=== PATIENT | male | born 1980 | race Caucasian/White ===

== ENCOUNTER 2017-05-19 14:21 | Inpatient (IN) | payer OTHER ==
[2017-05-19 14:38] VITALS: BMI 27.3
--- NOTE | 2017-05-19 17:22 | HP ---
CIWA Score - CIWA Score Nausea/Vomitin-No Nausea/No Vomiting Muscle Tremors: 4-Moderate,w/Arms Extend Anxiety: 4-Mod. Anxious/Guarded Agitation: 0-Normal Activity Paroxysmal Sweats: 4-Forehead w/Sweat Beads Orientation: 1-Uncertain about Date Tacttile Disturbances: 2-Mild Itch/Numbness/Burn Auditory Disturbances: 1-Very Mild Visual Disturbances: 0-None Headache: 0-None Present CIWA-Ar Total Score: 16 Admission ROS S - HPI Chief Complaint: "I want to go to detox and rehab, I want my life back in order, I have bad diarrhea and shakes" Allergies/Adverse Reactions: Allergies Allergy/AdvReac Type Severity Reaction Status Date / Time No Known Allergies Allergy Verified 05/19/17 16:57 History of Present Illness: 37 yo hx heroin, cocaine, and alcohol dependence is here seeking detox. PMHX: sciatica bilateral, L5 pinch nerve, depression, and hyperlipidemia. Reports OD 2 months was admitted to [facility]. Denies hx of seizure. Denies suicidal / homicidal ideation or suicide attempts. Last detox [facility] 2014. Reports no significant period of sobriety. Exam Limitations: No Limitations - Ebola screening Have you traveled outside of the country in the last 21 days: No Have you had contact with anyone from an Ebola affected area: No Have you been sick,other than usual withdrawal symptoms: No Do you have a fever: No - Review of Systems Constitutional: Chills, Loss of Appetite, Changes in sleep, Unintentional Wgt. Loss (loss about 40 lbs in the past two months) EENT: reports: No Symptoms Reported Respiratory: reports: No Symptoms reported Cardiac: reports: Syncope (related to drinking, last time three weeks ago) GI: reports: Diarrhea, Nausea, Poor Appetite, Poor Fluid Intake, Abdominal cramping : reports: No Symptoms Reported Musculoskeletal: reports: Back Pain (bilateral sciatica), Joint Pain Integumentary: reports: No Symptoms Reported Neuro: reports: Numbness (hands and feet), Tingling (hands and feet), Tremors Endocrine: reports: Excessive Sweating, Change in Weight Hematology: reports: No Symptoms Reported Psychiatric: reports: Orientated x3, Anxious, Depressed Other Systems: Reviewed and Negative Patient History - Patient Medical History Hx Anemia: No Hx Asthma: No Hx Chronic Obstructive Pulmonary Disease (COPD): No Hx Cancer: No Hx Cardiac Disorders: No Hx Congestive Heart Failure: No Hx Hypertension: No Hx Hypercholesterolemia: No Hx Pacemaker: No HX Cerebrovascular Accident: No Hx Seizures: No Hx Dementia: No Hx Diabetes: No Hx Gastrointestinal Disorders: No Hx Liver Disease: No Hx Genitourinary Disorders: No Hx Sexually Transmitted Disorders: No Hx Renal Disease (ESRD): No Hx Thyroid Disease: No Hx Human Immunodeficiency Virus (HIV): No (Last tested March 2017) Hx Hepatitis C: No Hx Depression: Yes Hx Suicide Attempt: No Hx Bipolar Disorder: No Hx Schizophrenia: No - Patient Surgical History Past Surgical History: No Hx Neurologic Surgery: No Hx Cataract Extraction: No Hx Cardiac Surgery: No Hx Lung Surgery: No Hx Breast Surgery: No Hx Breast Biopsy: No Hx Abdominal Surgery: No Hx Appendectomy: No Hx Cholecystectomy: No Hx Genitourinary Surgery: No Hx Section: No Hx Orthopedic Surgery: No Anesthesia Reaction: No - PPD History Previous Implant?: Yes Date: 02/18/15 PPD to be Administered?: Yes - Reproductive History Patient is a Female of Child Bearing Age (11 -55 yrs old): No - Smoking Cessation Smoking history: Former smoker Have you smoked in the past 12 months: No Aproximately how many cigarettes per day: 0 (quit 1.5 years ago ) Cigars Per Day: 0 Hx Chewing Tobacco Use: No Initiated information on smoking cessation: No - Substance & Tx. History Hx Alcohol Use: Yes Hx Substance Use: Yes Substance Use Type: Alcohol, Cocaine, Heroin Hx Substance Use Treatment: Yes ([facility] 2014) - Substances Abused Alcohol Route: Oral Frequency: Daily Amount used: 4/6PACK Age of first use: 13 Date of Last Use: 05/19/17 Heroin Route: Inhalation Frequency: Daily Amount used: 6 BAGS Age of first use: 36 Date of Last Use: 05/16/17 Cocaine Route: Inhalation Frequency: Daily Amount used: 4-5 bags Age of first use: 36 Date of Last Use: 05/19/17 Family Disease History - Family Disease History Family Disease History: Other: Father (heroin OD, cocaine, Cirrhosis liver, HIV +), Mother (alive and well), Sister (alive breast cancer ) Admission Physical Exam BHS - Vital Signs Vital Signs: Vital Signs - 24 hr 02/28/18 14:35 Temperature 97 F L Pulse Rate 80 Respiratory 18 Rate Blood Pressure 137/82 - Physical General Appearance: Yes: Disheveled, Mild Distress, Sweating, Anxious, Other ( malodorous) HEENTM: Yes: EOMI, Hearing grossly Normal, Normal ENT Inspection, Pharynx Normal , Tm's normal, Other (poor dentation) Respiratory: Yes: Chest Non-Tender, Lungs Clear, Normal Breath Sounds, No Respiratory Distress, No Accessory Muscle Use Neck: Yes: No masses,lesions,Nodules, Trachea in good position Breast: Yes: Breast Exam Deferred Cardiology: Yes: Regular Rhythm, Regular Rate Abdominal: Yes: Normal Bowel Sounds, Non Tender, Flat, Soft Genitourinary: Yes: Within Normal Limits Back: Yes: Normal Inspection Musculoskeletal: Yes: Back pain (radiates to the right lower extremity and left buttocks), Other (abnormal gait) Extremities: Yes: Normal Capillary Refill, Normal Inspection, Normal Range of Motion, Non-Tender Neurological: Yes: pullman clerk II-XII NML intact, Fully Oriented, Alert, Motor Strength 5/5, Depressed Affect (tearful during the assessment, sister recent dx with breast CA and father passed from over dose) Integumentary: Yes: Normal Color, Dry, Warm, Other (poor skin turgor) Lymphatic: Yes: Within Normal Limits - Addiitonal Findings: HIV testing offered today , patient refuse - Diagnostic (1) Heroin dependence Current Visit: Yes Status: Acute (2) Lumbago with sciatica Current Visit: Yes Status: Chronic Qualifiers: Back pain laterality: bilateral Sciatica laterality: bilateral sciatica (3) Dehydration Current Visit: Yes Status: Acute (4) Weight loss Current Visit: Yes Status: Acute (5) Use of cane as ambulatory aid Current Visit: Yes Status: Chronic (6) Neuropathy Current Visit: Yes Status: Chronic (7) Poor dentition Current Visit: Yes Status: Chronic (8) Alcohol dependence with withdrawal, uncomplicated Current Visit: Yes Status: Acute (9) Cocaine dependence Current Visit: Yes Status: Chronic Qualifiers: Substance use status: uncomplicated Qualified Code(s): F14.20 - Cocaine dependence, uncomplicated (10) Difficulty sleeping Current Visit: Yes Status: Acute (11) Depressed mood Current Visit: Yes Status: Acute (12) Feeling grief Current Visit: Yes Status: Acute Cleared for Admission [facility] - Detox or Rehab [facility] Level of Care: Medically Managed Detox Regimen/Protocol: Librium [facility] Breath Alcohol Content Breath Alcohol Content: 0 Urine Drug Screen - Results Drug Screen Negative: No Urine Drug Screen Results: SALAZAR-Cocaine
[2017-05-19] MEDS ORDERED: hydrOXYzine PAMOATE 50 MG CAPSULE (FP) PO PRN (17:45)
[2017-05-19] MEDS ORDERED: MENTHOL/PHENOL 1 EACH UD MM PRN (17:45)
[2017-05-19] MEDS ORDERED: MAG HYDROX/AL HYDROX/SIMETH 30 ML UNIT-DOSE CUP PO PRN (17:45)
[2017-05-19] MEDS ORDERED: MAGNESIUM CITRATE 300 ML BOTTLE PO PRN (17:45)
[2017-05-19] MEDS ORDERED: MAGNESIUM HYDROX 2400MG/30ML ORAL SUSPENSION 30 ML CUP PO PRN (17:45)
[2017-05-19] MEDS ORDERED: P-EPHED 60MG/TRIPROLIDI 2.5MG TABLET PO PRN (17:45)
[2017-05-19] MEDS ORDERED: chlordiazePOXIDE HCL 25 MG CAPSULE PO PRN (17:45)
[2017-05-19] MEDS ORDERED: guaiFENesin/D-METHORPHAN HB 10 ML UNIT-DOSE CUPS PO PRN (17:45)
[2017-05-19] MEDS ORDERED: IBUPROFEN 400 MG TABLET (FP) PO PRN (17:45)
[2017-05-19] MEDS ORDERED: LOPERAMIDE HCL 2 MG CAPSULE PO PRN (17:45)
[2017-05-19] MEDS ORDERED: ACETAMINOPHEN 325 MG TABLET (FP) PO PRN (17:45)
[2017-05-19] MEDS ORDERED: chlordiazePOXIDE HCL 25 MG CAPSULE PO ONE (18:30)
[2017-05-19] MEDS: CYCLOBENZAPRINE HCL 5 MG TABLET PO SCH (22:44)
[2017-05-19] MEDS: THIAMINE HCL 100 MG TABLET (FP) PO SCH (22:44)
[2017-05-19] MEDS: chlordiazePOXIDE HCL 25 MG CAPSULE PO SCH (22:45)
[2017-05-19 22:47] LABS: URINE APPEARANCE CLEAR; URINE BILIRUBIN NEGATIVE (NEGATIVE); URINE BLOOD NEGATIVE (NEGATIVE); URINE COLOR YELLOW; URINE GLUCOSE (UA) 3+ (NEGATIVE); URINE KETONE 1+ (NEGATIVE); URINE LEUK ESTERASE NEGATIVE (NEGATIVE); URINE NITRITE NEGATIVE (NEGATIVE); URINE PROTEIN NEGATIVE (NEGATIVE)
[2017-05-20] MEDS: chlordiazePOXIDE HCL 25 MG CAPSULE PO SCH ×4 (07:54→22:23)
[2017-05-20] MEDS: CYCLOBENZAPRINE HCL 5 MG TABLET PO SCH ×3 (07:54→22:23)
[2017-05-20 10:20] LABS: HEMATOCRIT 42.6 % (35.4-49); HEMOGLOBIN 14.1 GM/dL (11.7-16.9); MCH 27.8 pg (25.7-33.7); MEAN CELL VOLUME 84.3 fl (80-96); MEAN PLT VOLUME 9.5 fl (7.5-11.1); PLATELET COUNT 239 K/MM3 (134-434); RBC 5.06 M/mm3 (4.00-5.60); RDW 15.4 % (11.9-15.9); WHITE BLOOD COUNT 5.9 K/mm3 (4.0-10.0)
[2017-05-20] MEDS: PRENATAL VITAMINS W/ FOLIC ACID TABLET (FP) PO SCH (10:45)
[2017-05-20 11:00] LABS: ALBUMIN 3.2 g/dl (3.4-5.0); ANION GAP 6 (8-16); BLOOD UREA NITROGEN 14 mg/dL (7-18); CALCIUM 8.2 mg/dL (8.5-10.1); CHLORIDE 109 mmol/L (98-107); CO2 28 mmol/L (21-32); CREATININE 0.7 mg/dL (0.7-1.3); GLUCOSE,RANDOM 86 mg/dL (74-106); POTASSIUM 4.5 mmol/L (3.5-5.1); SGOT/AST 8 U/L (15-37); SGPT/ALT 21 U/L (12-78); SODIUM 143 mmol/L (136-145)
[2017-05-20 11:02] LABS: ALK PHOS 68 U/L (45-117); BILIRUBIN,TOTAL 0.4 mg/dL (0.2-1.0); TOT PROT 5.9 g/dl (6.4-8.2)
--- NOTE | 2017-05-20 11:14 | PN ---
[facility] CIWA - CIWA Score Nausea/Vomitin-No Nausea/No Vomiting Muscle Tremors: 3 Anxiety: 4-Mod. Anxious/Guarded Agitation: 4-Moderately Restless Paroxysmal Sweats: 3 Orientation: 0-Oriented Tacttile Disturbances: 3-Moderate Itch/Numb/Burn Auditory Disturbances: 0-None Visual Disturbances: 0-None Headache: 0-None Present CIWA-Ar Total Score: 17 BHS Progress Note (SOAP) Subjective: Stomach Cramping, Interrupted sleep, Diarrhea, Anxious, Fatigue, Body Aches, Tremors. Objective: PATIENT A & O X 3, OBSERVED AMBULATING ON UNIT. NO ACUTE DISTRESS. 05/20/17 11:13 Vital Signs Temperature 95.3 F L 05/20/17 06:36 Pulse Rate 62 05/20/17 06:36 Respiratory Rate 18 05/20/17 06:36 Blood Pressure 110/65 05/20/17 06:36 O2 Sat by Pulse Oximetry (%) Laboratory Tests 05/19/17 05/20/17 20:00 07:30 WBC 5.9 RBC 5.06 Hgb 14.1 Hct 42.6 MCV 84.3 MCH 27.8 MCHC 33.0 RDW 15.4 Plt Count 239 MPV 9.5 D Urine Color Yellow Urine Appearance Clear Urine pH 6.0 Ur Specific [place] 1.027 Urine Protein Negative Urine Glucose (UA) 3+ H Urine Ketones 1+ H Urine Blood Negative Urine Nitrite Negative Urine Bilirubin Negative Urine Urobilinogen 2.0 Ur Leukocyte Esterase Negative LABS NOTED. CMP, RPR RESULT SPENDING. 05/20/17 11:14 Assessment: 05/20/17 11:13 WITHDRAWAL SYMPTOMS. Plan: CONTINUE DETOX. INCREASE DAILY PO FLUID INTAKE.
--- NOTE | 2017-05-20 11:24 | CONSULT ---
[facility] Psychiatric Consult - Data Date of interview: 05/20/17 Admission source: [facility] Identifying data: Pt. is a 37 year old single male, without kids, and currently working. This is one of multiple admissions for patient. Pt. admitted to for cocaine, opiate, and alcohol dependence. Substance Abuse History: Following information confirmed with Mr. Patrick: Smoking Cessation. Smoking history: Former smoker. Have you smoked in the past 12 months: No. Aproximately how many cigarettes per day: 0 (quit 1.5 years ago ). Cigars Per Day: 0. Hx Chewing Tobacco Use: No. Initiated information on smoking cessation: No. - Substance & Tx. History. Hx Alcohol Use: Yes. Hx Substance Use: Yes. Substance Use Type: Alcohol, Cocaine, Heroin. Hx Substance Use Treatment: Yes ([facility] 2014). - Substances Abused. Alcohol. Route: Oral. Frequency: Daily. Amount used: 4/6PACK. Age of first use: 13. Date of Last Use: 05/19/17. Heroin. Route: Inhalation. Frequency : Daily. Amount used: 6 BAGS. Age of first use: 36. Date of Last Use: . Cocaine. Route: Inhalation. Frequency: Daily. Amount used: 4-5 bags. Age of first use: 36. Date of Last Use: 05/19/17 Medical History: Denies. Psychiatric History: Pt. presents as irritable, guarded, and minimizing information. Pt. reports one psychiatric hospitalization last year at [facility]. Reports previous trials of taking geodon, Seroquel, Mirtzapine. Pt. is nonadherent to medications and to outpatient care. Reports a diagnosis of bipolar disorder and psychosis. Pt. denies h/o suicide attempt. Pt. denies suicidal and homicidal ideation. Pt. requesting to end conversation by stating, " i don't need to speak to anyone about mental health." Physical/Sexual Abuse/Trauma History: Denies. Mental Status Exam - Mental Status Exam Alert and Oriented to: Time, Place, Person Cognitive Function: Fair Patient Appearance: Unkempt Mood: Withdrawn, Irritable Affect: Mood Congruent Patient Behavior: Guarded, Agitated Speech Pattern: Delayed Voice Loudness: Normal Thought Process: Goal Oriented Thought Disorder: Not Present Hallucinations: Denies Suicidal Ideation: Denies Homicidal Ideation: Denies Insight/Judgement: Poor Sleep: Fair Appetite: Fair Muscle strength/Tone: Normal Gait/Station: Other (Did not observe patient's gait.) Psychiatric Findings - Problem List ([place] 1, 2,3) (1) Drug-induced mood disorder Current Visit: Yes Status: Acute (2) Alcohol dependence with withdrawal, uncomplicated Current Visit: Yes Status: Acute (3) Heroin dependence Current Visit: Yes Status: Acute (4) Cocaine dependence Current Visit: Yes Status: Chronic Qualifiers: Substance use status: uncomplicated Qualified Code(s): F14.20 - Cocaine dependence, uncomplicated - Initial Treatment Plan Initial Treatment Plan: Psychoeducation provided. Detoxification in progress. Pt. refusing treatment from "mental health." Observation.
--- NOTE | 2017-05-20 11:43 | EKG ---
Test Reason : Blood Pressure : / mmHG Vent. Rate : 069 BPM Atrial Rate : 069 BPM P-R Int : 146 ms QRS Dur : 084 ms QT Int : 408 ms P-R-T Axes : 016 060 044 degrees QTc Int : 437 ms NORMAL SINUS RHYTHM NORMAL ECG NO PREVIOUS ECGS AVAILABLE Confirmed by SEEMA FRANK MD ([id number]) on 05/20/2017 11:43:00 AM Referred By: Confirmed By:SEEMA FRANK MD
[2017-05-20] MEDS: THIAMINE HCL 100 MG TABLET (FP) PO SCH (22:23)
[2017-05-21] MEDS: CYCLOBENZAPRINE HCL 5 MG TABLET PO SCH ×3 (05:25→22:50)
[2017-05-21] MEDS: chlordiazePOXIDE HCL 25 MG CAPSULE PO SCH ×3 (05:26→17:34)
[2017-05-21] MEDS: PRENATAL VITAMINS W/ FOLIC ACID TABLET (FP) PO SCH (10:39)
--- NOTE | 2017-05-21 12:26 | PN ---
[facility] CIWA - CIWA Score Nausea/Vomitin-No Nausea/No Vomiting Muscle Tremors: 4-Moderate,w/Arms Extend Anxiety: 4-Mod. Anxious/Guarded Agitation: 3 Paroxysmal Sweats: 3 Orientation: 2-Disoriented Date<2 days Tacttile Disturbances: 0-None Auditory Disturbances: 0-None Visual Disturbances: 0-None Headache: 0-None Present CIWA-Ar Total Score: 16 BHS Progress Note (SOAP) Subjective: Sweating, Tremors, Anxious, Body Aches, Fatigue. Objective: PATIENT A & O X 2 (UNCERTAIN ABOUT CURRENT DAY/ DATE). PATIENT OBSERVED AMBULATING ON UNIT. NO ACUTE DISTRESS. 05/21/17 12:23 Vital Signs Temperature 97 F L 05/21/17 06:02 Pulse Rate 58 L 05/21/17 06:02 Respiratory Rate 18 05/21/17 06:02 Blood Pressure 121/76 05/21/17 06:02 O2 Sat by Pulse Oximetry (%) Laboratory Tests 05/19/17 05/20/17 05/20/17 20:00 07:30 07:30 WBC 5.9 RBC 5.06 Hgb 14.1 Hct 42.6 MCV 84.3 MCH 27.8 MCHC 33.0 RDW 15.4 Plt Count 239 MPV 9.5 D Sodium 143 Potassium 4.5 D Chloride 109 H Carbon Dioxide 28 Anion Gap 6 L BUN 14 D Creatinine 0.7 Creat Clearance w eGFR > 60 Random Glucose 86 Calcium 8.2 L Total Bilirubin 0.4 D AST 8 L D ALT 21 D Alkaline Phosphatase 68 Total Protein 5.9 L Albumin 3.2 L Urine Color Yellow Urine Appearance Clear Urine pH 6.0 Ur Specific [place] 1.027 Urine Protein Negative Urine Glucose (UA) 3+ H Urine Ketones 1+ H Urine Blood Negative Urine Nitrite Negative Urine Bilirubin Negative Urine Urobilinogen 2.0 Ur Leukocyte Esterase Negative RPR Titer 05/20/17 07:30 WBC RBC Hgb Hct MCV MCH MCHC RDW Plt Count MPV Sodium Potassium Chloride Carbon Dioxide Anion Gap BUN Creatinine Creat Clearance w eGFR Random Glucose Calcium Total Bilirubin AST ALT Alkaline Phosphatase Total Protein Albumin Urine Color Urine Appearance Urine pH Ur Specific [place] Urine Protein Urine Glucose (UA) Urine Ketones Urine Blood Urine Nitrite Urine Bilirubin Urine Urobilinogen Ur Leukocyte Esterase RPR Titer Nonreactive LABS NOTED. Assessment: 05/21/17 12:24 WITHDRAWAL SYMPTOMS. Plan: CONTINUE DETOX. REPEAT UA FOR ELEVATED ADMISSION URINE GLUCOSE LEVEL. INCREASE DAILY PO FLUID INTAKE.
[2017-05-21] MEDS: chlordiazePOXIDE 5 MG CAPSULE PO SCH (22:51)
[2017-05-21] MEDS: THIAMINE HCL 100 MG TABLET (FP) PO SCH (22:51)
[2017-05-22] MEDS: CYCLOBENZAPRINE HCL 5 MG TABLET PO SCH ×3 (05:57→23:39)
[2017-05-22] MEDS: chlordiazePOXIDE 5 MG CAPSULE PO SCH ×3 (05:57→17:41)
[2017-05-22] MEDS: PRENATAL VITAMINS W/ FOLIC ACID TABLET (FP) PO SCH (10:47)
--- NOTE | 2017-05-22 14:45 | PN ---
BHS Progress Note (SOAP) Subjective: Sweating, Fatigue, Interrupted sleep, Body Aches. Objective: PATIENT A & O X 3, OBSERVED AMBULATING ON UNIT. NO ACUTE DISTRESS. 05/22/17 14:43 Vital Signs Temperature 97.1 F L 05/22/17 09:53 Pulse Rate 80 05/22/17 09:53 Respiratory Rate 20 05/22/17 09:53 Blood Pressure 126/72 05/22/17 09:53 O2 Sat by Pulse Oximetry (%) Laboratory Tests 05/19/17 05/20/17 05/20/17 20:00 07:30 07:30 WBC 5.9 RBC 5.06 Hgb 14.1 Hct 42.6 MCV 84.3 MCH 27.8 MCHC 33.0 RDW 15.4 Plt Count 239 MPV 9.5 D Sodium 143 Potassium 4.5 D Chloride 109 H Carbon Dioxide 28 Anion Gap 6 L BUN 14 D Creatinine 0.7 Creat Clearance w eGFR > 60 Random Glucose 86 Calcium 8.2 L Total Bilirubin 0.4 D AST 8 L D ALT 21 D Alkaline Phosphatase 68 Total Protein 5.9 L Albumin 3.2 L Urine Color Yellow Urine Appearance Clear Urine pH 6.0 Ur Specific [place] 1.027 Urine Protein Negative Urine Glucose (UA) 3+ H Urine Ketones 1+ H Urine Blood Negative Urine Nitrite Negative Urine Bilirubin Negative Urine Urobilinogen 2.0 Ur Leukocyte Esterase Negative RPR Titer 05/20/17 07:30 WBC RBC Hgb Hct MCV MCH MCHC RDW Plt Count MPV Sodium Potassium Chloride Carbon Dioxide Anion Gap BUN Creatinine Creat Clearance w eGFR Random Glucose Calcium Total Bilirubin AST ALT Alkaline Phosphatase Total Protein Albumin Urine Color Urine Appearance Urine pH Ur Specific [place] Urine Protein Urine Glucose (UA) Urine Ketones Urine Blood Urine Nitrite Urine Bilirubin Urine Urobilinogen Ur Leukocyte Esterase RPR Titer Nonreactive LABS NOTED. Assessment: 05/22/17 14:44 WITHDRAWAL SYMPTOMS. Plan: CONTINUE DETOX. INCREASE DAILY PO FLUID INTAKE.
[2017-05-22 23:22] VITALS: BP 128/86; PULSE 86; TEMP 98.4
[2017-05-22] MEDS: chlordiazePOXIDE HCL 10 MG CAPSULE PO SCH (23:39)
[2017-05-22] MEDS: THIAMINE HCL 100 MG TABLET (FP) PO SCH (23:39)
[2017-05-23] MEDS: CYCLOBENZAPRINE HCL 5 MG TABLET PO SCH (05:49)
[2017-05-23] MEDS: chlordiazePOXIDE HCL 10 MG CAPSULE PO SCH ×2 (05:49→10:48)
[2017-05-23] MEDS: PRENATAL VITAMINS W/ FOLIC ACID TABLET (FP) PO SCH (10:48)
--- NOTE | 2017-05-23 11:42 | DS ---
[facility] Detox Discharge Summary Admission Date: 05/19/17 - History Present History: Alcohol Dependence, Cocaine Dependence, Opioid Dependence Pertinent Past History: Neuropathy Lumbago with sciatica - Physical Exam Results Vital Signs: Vital Signs Temperature 98.4 F 05/22/17 23:21 Pulse Rate 86 05/22/17 23:21 Respiratory Rate 18 05/23/17 00:30 Blood Pressure 128/86 05/22/17 23:21 O2 Sat by Pulse Oximetry (%) Pertinent Admission Physical Exam Findings: Withdrawal symptoms Laboratory Tests 05/19/17 05/20/17 05/20/17 20:00 07:30 07:30 WBC 5.9 RBC 5.06 Hgb 14.1 Hct 42.6 MCV 84.3 MCH 27.8 MCHC 33.0 RDW 15.4 Plt Count 239 MPV 9.5 D Sodium 143 Potassium 4.5 D Chloride 109 H Carbon Dioxide 28 Anion Gap 6 L BUN 14 D Creatinine 0.7 Creat Clearance w eGFR > 60 Random Glucose 86 Calcium 8.2 L Total Bilirubin 0.4 D AST 8 L D ALT 21 D Alkaline Phosphatase 68 Total Protein 5.9 L Albumin 3.2 L Urine Color Yellow Urine Appearance Clear Urine pH 6.0 Ur Specific [place] 1.027 Urine Protein Negative Urine Glucose (UA) 3+ H Urine Ketones 1+ H Urine Blood Negative Urine Nitrite Negative Urine Bilirubin Negative Urine Urobilinogen 2.0 Ur Leukocyte Esterase Negative RPR Titer 05/20/17 07:30 WBC RBC Hgb Hct MCV MCH MCHC RDW Plt Count MPV Sodium Potassium Chloride Carbon Dioxide Anion Gap BUN Creatinine Creat Clearance w eGFR Random Glucose Calcium Total Bilirubin AST ALT Alkaline Phosphatase Total Protein Albumin Urine Color Urine Appearance Urine pH Ur Specific [place] Urine Protein Urine Glucose (UA) Urine Ketones Urine Blood Urine Nitrite Urine Bilirubin Urine Urobilinogen Ur Leukocyte Esterase RPR Titer Nonreactive Labs noted - Treatment Hospital Course: Detox Protocol Followed, Detoxed Safely, Responded well, Discharged Condition Good - Medication Discharge Medications: Ambulatory Orders NK [No Known Home Medication] 05/19/17 - Diagnosis (1) Alcohol dependence with withdrawal, uncomplicated Status: Acute (2) Depressed mood Status: Acute (3) Cocaine dependence Status: Chronic Qualifiers: Substance use status: uncomplicated Qualified Code(s): F14.20 - Cocaine dependence, uncomplicated (4) Lumbago with sciatica Status: Chronic Qualifiers: Back pain laterality: bilateral Sciatica laterality: bilateral sciatica (5) Neuropathy Status: Chronic (6) Opioid dependence with withdrawal Status: Acute - AMA Did Patient Leave Against Medical Advice: No (Follow up with your PCP in 1-2 weeks)
== END 2017-05-23 09:45 | disposition home or self-care (01) | DRG 773 ==
LOC: YASAS 14:21 → Y3N 18:00
PROVIDERS: ADMIT Internal Medicine; ATTEND Internal Medicine
PROC: HZ2ZZZZ Detoxification Services for Substance Abuse Treatment (ICD-10-PCS; principal; 2017-05-19)
DX: F11.23 Opioid dependence with withdrawal (principal); F10.230 Alcohol dependence with withdrawal, uncomplicated; F14.20 Cocaine dependence, uncomplicated; F32.9 Major depressive disorder, single episode, unspecified; F19.24 Other psychoactive substance dependence with psychoactive substance-induced mood disorder; Z63.4 Disappearance and death of family member; M54.42 Lumbago with sciatica, left side; M54.41 Lumbago with sciatica, right side; G62.9 Polyneuropathy, unspecified; E86.0 Dehydration; G47.00 Insomnia, unspecified; K08.9 Disorder of teeth and supporting structures, unspecified; R26.2 Difficulty in walking, not elsewhere classified; Z99.89 Dependence on other enabling machines and devices; Z87.891 Personal history of nicotine dependence; Z87.898 Personal history of other specified conditions
CPT/HCPCS: 36415; 80053; 81003; 85027; 86593; 93005; 93010

== ENCOUNTER 2020-09-02 18:56 | Inpatient (IN) | payer OTHER ==
[2020-09-02 19:28] VITALS: BMI 34.9
[2020-09-02] MEDS ORDERED: ONDANSETRON *ODT* 4 MG TABLET SL PRN (20:07)
[2020-09-02] MEDS ORDERED: METHOCARBAMOL 500 MG TABLET PO PRN (20:07)
[2020-09-02] MEDS ORDERED: BISMUTH SUBSALICYLATE 524 MG/30 ML PO PRN (20:07)
[2020-09-02] MEDS ORDERED: IBUPROFEN 400 MG TABLET (FP) PO PRN (20:07)
[2020-09-02] MEDS ORDERED: MENTHOL/PHENOL 1 EACH UD MM PRN (20:07)
[2020-09-02] MEDS ORDERED: MAGNESIUM CITRATE 300 ML BOTTLE PO PRN (20:07)
[2020-09-02] MEDS ORDERED: MAG HYDROX/AL HYDROX/SIMETH 30 ML UNIT-DOSE CUP PO PRN (20:07)
[2020-09-02] MEDS ORDERED: ACETAMINOPHEN 325 MG TABLET (FP) PO PRN ×2 (20:07)
[2020-09-02] MEDS ORDERED: guaiFENesin 200 MG/10 ML 10 ML UNIT-DOSE CUPS PO PRN (20:07)
[2020-09-02] MEDS ORDERED: P-EPHED 60MG/TRIPROLIDI 2.5MG TABLET PO PRN (20:07)
[2020-09-02] MEDS ORDERED: hydrOXYzine PAMOATE 25 MG CAPSULE (FP) PO PRN (20:07)
[2020-09-02] MEDS ORDERED: MAGNESIUM HYDROX 2400MG/30ML ORAL SUSPENSION 30 ML CUP PO PRN (20:07)
[2020-09-02] MEDS: MELATONIN 5 MG TABLETS PO SCH (22:25)
[2020-09-02] MEDS: THIAMINE HCL 100 MG TABLET (FP) PO SCH (22:27)
[2020-09-03] MEDS ORDERED: cloNIDine HCL 0.1 MG TABLET PO PRN (09:13)
[2020-09-03] MEDS ORDERED: METHADONE HCL 10 MG TABLET (FOR DETOX USE ONLY) PO ONE (09:13)
[2020-09-03] MEDS ORDERED: diazePAM 5 MG TABLET PO PRN (09:15)
[2020-09-03] MEDS ORDERED: PRENATAL VITAMINS W/ FOLIC ACID TABLET (FP) PO SCH (10:00)
[2020-09-03 10:10] LABS: ALBUMIN 3.2 g/dl (3.4-5.0); BLOOD UREA NITROGEN 11.7 mg/dL (7-18); CALCIUM 8.7 mg/dL (8.5-10.1)
[2020-09-03 10:11] LABS: HEMATOCRIT 39.8 % (35.4-49); HEMOGLOBIN 12.8 GM/dL (11.7-16.9); MCH 27.1 pg (25.7-33.7); MCHC 32.3 g/dl (32.0-35.9); MEAN CELL VOLUME 83.7 fl (80-96); MEAN PLT VOLUME 9.8 fl (7.5-11.1); PLATELET COUNT 203 10^3/uL (134-434); RBC 4.75 M/mm3 (4.00-5.60); RDW 14.8 % (11.9-15.9); WHITE BLOOD COUNT 5.4 K/mm3 (4.0-10.0)
[2020-09-03 10:13] LABS: CREATININE 0.6 mg/dL (0.55-1.3)
[2020-09-03 10:15] LABS: BILIRUBIN,TOTAL 0.2 mg/dL (0.2-1); TOT PROT 5.6 g/dl (6.4-8.2)
[2020-09-03] MEDS: THIAMINE HCL 100 MG TABLET (FP) PO SCH (22:27)
[2020-09-03] MEDS: MELATONIN 5 MG TABLETS PO SCH (22:27)
[2020-09-04 09:26] VITALS: BP 114/79; PULSE 71; TEMP 97.7
[2020-09-04] MEDS ORDERED: METHADONE (DETOX) 20 MG, METHADONE (DETOX) 5 MG PO ONE (10:00)
[2020-09-05] MEDS ORDERED: METHADONE HCL 10 MG TABLET (FOR DETOX USE ONLY) PO ONE (10:00)
[2020-09-06] MEDS ORDERED: METHADONE (DETOX) 10 MG, METHADONE (DETOX) 5 MG PO ONE (10:00)
[2020-09-07] MEDS ORDERED: METHADONE HCL 10 MG TABLET (FOR DETOX USE ONLY) PO ONE (10:00)
[2020-09-08] MEDS ORDERED: METHADONE HCL 5 MG TABLET (FOR DETOX USE ONLY) PO ONE (06:00)
== END 2020-09-04 09:27 | disposition left against medical advice (07) | DRG 770 ==
LOC: YASAS 18:56 → Y6N 20:33 → UNDOADMIN 20:33 → UNDODISIN 09-04 09:27
PROVIDERS: ADMIT Allergy & Immunology; ATTEND Allergy & Immunology
PROC: HZ2ZZZZ Detoxification Services for Substance Abuse Treatment (ICD-10-PCS; principal; 2020-09-02)
DX: F11.23 Opioid dependence with withdrawal (principal); F14.20 Cocaine dependence, uncomplicated; F10.10 Alcohol abuse, uncomplicated; F17.210 Nicotine dependence, cigarettes, uncomplicated; R56.1 Post traumatic seizures; E86.0 Dehydration; M54.5 Low back pain; N40.0 Benign prostatic hyperplasia without lower urinary tract symptoms; Z87.820 Personal history of traumatic brain injury
CPT/HCPCS: 36415; 80053; 85027; 86780; C9803; U0003; U0005

== ENCOUNTER 2022-11-25 14:20 | Inpatient (IN) | payer OTHER ==
[2022-11-25 18:40] VITALS: BMI 35.6
[2022-11-25] MEDS ORDERED: diazePAM 5 MG TABLET PO PRN (21:57)
[2022-11-25] MEDS ORDERED: methaDONE HCL 10 MG TABLET (FOR DETOX USE ONLY) PO ONE (22:00)
[2022-11-25] MEDS ORDERED: cloNIDine HCL 0.1 MG TABLET PO PRN (22:00)
[2022-11-25] MEDS ORDERED: IBUPROFEN 400 MG TABLET (FP) PO PRN (22:05)
[2022-11-25] MEDS ORDERED: NALOXONE HCL (KLOXXADO) 8 MG SPRAY NS PRN (22:05)
[2022-11-25] MEDS ORDERED: NALOXONE HCL 0.4 MG/ML VIAL IM PRN (22:05)
[2022-11-25] MEDS ORDERED: guaiFENesin 600 MG TABLET.ER (FP) PO PRN (22:05)
[2022-11-25] MEDS ORDERED: BENZOCAINE/MENTHOL (CHLORASEPTIC ) LOZENGE MM PRN (22:05)
[2022-11-25] MEDS ORDERED: MAGNESIUM HYDROX 2400MG/30ML ORAL SUSPENSION 30 ML CUP PO PRN (22:05)
[2022-11-25] MEDS ORDERED: METHOCARBAMOL 500 MG TABLET PO PRN (22:05)
[2022-11-25] MEDS ORDERED: P-EPHED 60MG/TRIPROLIDI 2.5MG TABLET PO PRN (22:05)
[2022-11-25] MEDS ORDERED: ONDANSETRON *ODT* 4 MG TABLET SL PRN (22:05)
[2022-11-25] MEDS ORDERED: BISMUTH SUBSALICYLATE 524 MG/30 ML PO PRN (22:05)
[2022-11-25] MEDS ORDERED: IBUPROFEN 600 MG TABLET (FP) PO PRN (22:05)
[2022-11-25] MEDS ORDERED: DICYCLOMINE HCL 10 MG CAPSULE PO PRN (22:05)
[2022-11-25] MEDS ORDERED: POLYETHYLENE GLYCOL (HEALTHYLAX) 3350 17 GM PACKET PO PRN (22:05)
[2022-11-25] MEDS ORDERED: MAG HYDROX/AL HYDROX/SIMETH 30 ML UNIT-DOSE CUP PO PRN (22:05)
[2022-11-25] MEDS ORDERED: ACETAMINOPHEN 325 MG TABLET (FP) PO PRN (22:05)
[2022-11-25] MEDS ORDERED: BENZONATATE 200 MG CAPSULE PO PRN (22:05)
[2022-11-25] MEDS ORDERED: LOPERAMIDE HCL 2 MG CAPSULE PO PRN (22:05)
[2022-11-25] MEDS: diazePAM 5 MG TABLET PO SCH (22:44)
[2022-11-25] MEDS: levETIRAcetam 500 MG TABLET (FP) PO SCH (23:16)
[2022-11-25] MEDS: FLUTICASONE PROP 0.05% 16 GM NASAL SPRAY NS SCH (23:16)
[2022-11-26] MEDS: diazePAM 5 MG TABLET PO SCH ×4 (05:56→22:46)
[2022-11-26] MEDS ORDERED: PRENATAL VITAMINS W/ FOLIC ACID TABLET (FP) PO SCH (10:00)
[2022-11-26] MEDS: FLUTICASONE PROP 0.05% 16 GM NASAL SPRAY NS SCH ×2 (10:59→22:45)
[2022-11-26] MEDS: levETIRAcetam 500 MG TABLET (FP) PO SCH ×3 (10:59→22:47)
[2022-11-26 12:23] LABS: POTASSIUM 4.7 mmol/L (3.5-5.1)
[2022-11-26 12:26] LABS: ALBUMIN 3.1 g/dl (3.4-5.0); BLOOD UREA NITROGEN 13.4 mg/dL (7-18); CALCIUM 8.4 mg/dL (8.5-10.1)
[2022-11-26 12:29] LABS: CREATININE 0.7 mg/dL (0.55-1.3); HEMATOCRIT 42.5 % (35.4-49); HEMOGLOBIN 13.4 GM/dL (11.7-16.9); MCH 26.5 pg (25.7-33.7); MCHC 31.6 g/dl (32.0-35.9); MEAN CELL VOLUME 83.9 fl (80-96); MEAN PLT VOLUME 9.9 fl (7.5-11.1); PLATELET COUNT 232 10^3/uL (134-434); RBC 5.06 M/mm3 (4.00-5.60); RDW 14.2 % (11.9-15.9); WHITE BLOOD COUNT 7.3 K/mm3 (4.0-10.0)
[2022-11-26 12:31] LABS: BILIRUBIN,TOTAL 0.1 mg/dL (0.2-1); TOT PROT 5.9 g/dl (6.4-8.2)
[2022-11-26 13:09] VITALS: RESP 18
[2022-11-26 13:23] LABS: HIV INTERPRETATION NEGATIVE (NEGATIVE)
[2022-11-26 17:32] VITALS: PULSE 62
[2022-11-26 21:15] VITALS: BP 126/89; TEMP 97.8
[2022-11-26] MEDS ORDERED: MELATONIN 5 MG TABLETS PO SCH (22:00)
[2022-11-26] MEDS ORDERED: THIAMINE HCL 100 MG TABLET (FP) PO SCH (22:00)
[2022-11-27] MEDS ORDERED: diazePAM 5 MG TABLET PO SCH (06:00)
[2022-11-27] MEDS ORDERED: methaDONE HCL 10 MG TABLET (FOR DETOX USE ONLY) PO ONE (10:00)
[2022-11-28] MEDS ORDERED: diazePAM 5 MG TABLET PO SCH (06:00)
[2022-11-29] MEDS ORDERED: diazePAM 5 MG TABLET PO ONE (06:00)
[2022-11-29] MEDS ORDERED: methaDONE HCL 10 MG TABLET (FOR DETOX USE ONLY) PO ONE (10:00)
== END 2022-11-27 03:50 | disposition left against medical advice (07) | DRG 770 ==
LOC: YASAS 14:20 → Y3N 22:05
PROVIDERS: ADMIT Allergy & Immunology; ATTEND Surgery
PROC: HZ2ZZZZ Detoxification Services for Substance Abuse Treatment (ICD-10-PCS; principal; 2022-11-25)
DX: F11.23 Opioid dependence with withdrawal (principal); F10.230 Alcohol dependence with withdrawal, uncomplicated; F19.24 Other psychoactive substance dependence with psychoactive substance-induced mood disorder; F32.A Depression, unspecified; G62.9 Polyneuropathy, unspecified; M54.40 Lumbago with sciatica, unspecified side; Z99.89 Dependence on other enabling machines and devices; Z87.891 Personal history of nicotine dependence; F91.8 Other conduct disorders; Z91.199 Patient's noncompliance with other medical treatment and regimen due to unspecified reason
CPT/HCPCS: 36415; 80053; 85027; 86780; 87389; 87635